=== PATIENT | female | born 1985 | race African-American/Black ===

== ENCOUNTER 2019-08-12 06:55 | Inpatient (IN) | payer BC, OTHER ==
[~2019-08-12] VITALS: Ht 170.2 cm; Wt 108.0 kg
[2019-08-12] MEDS ORDERED: DEXT 5%/LR + PITOCIN 20UNITS/L 1,000 ML IV SCH (07:35)
[2019-08-12] MEDS ORDERED: MISOPROSTOL 100MCG TABLET VG SCH (07:45)
[2019-08-12] MEDS ORDERED: NALOXONE HCL 0.4 MG/ML 1ML VIAL IM PRN (07:45)
[2019-08-12] MEDS ORDERED: METHYLERGONOVINE MALEATE 0.2 MG/ML IM PRN (07:45)
[2019-08-12] MEDS: LACTATED RINGERS 1,000 ML IV SCH ×3 (08:30→09:39)
[2019-08-12 09:01] LABS: BASOPHILS % 0.5 % (0.0-2.0); CLARITY URINE CLEAR (CLEAR); COLOR URINE YELLOW (YELLOW); EOSINOPHILS % 0.4 % (0.0-5.0); HEMATOCRIT. 28.6 % (36.0-48.0); HEMOGLOBIN. 9.3 g/dL (12.0-16.0); KETONES URINE NEGATIVE (NEGATIVE); LEUKOCYTE ESTERASE URINE NEGATIVE (NEGATIVE); LYMPHOCYTES % 15.6 % (20.0-50.0); MEAN CORPUSCULAR HEMOGLOBIN 25.5 pg (28.0-32.0); MEAN CORPUSCULAR VOLUME 78.5 fL (81.0-99.0); MEAN PLATELET VOLUME 8.1 fl (7.4-10.4); MONOCYTES % 7.6 % (2.0-8.0); NEUTROPHILS % 75.9 % (40.0-76.0); NITRITE URINE NEGATIVE (NEGATIVE); OCCULT BLOOD URINE NEGATIVE (NEGATIVE); PH URINE 6.5 (4.5-8.0); PLATELET 330 x1000/uL (130-400); PROTEIN URINE NEGATIVE (NEGATIVE); RED BLOOD CELL COUNT 3.65 mill/uL (4.2-5.4); RED CELL DISTRIBUTION WIDTH 15.9 % (11.6-14.6); SPECIFIC GRAVITY URINE 1.014 (1.005-1.030)
[2019-08-12 09:12] LABS: PARTIAL THROMBOPLASTIN TIME 25.7 sec (23.4-31.0); PROTHROMBIN TIME 9.8 sec (9.6-11.0)
[2019-08-12 09:48] LABS: *AMPHETAMINES SCREEN URINE NEGATIVE (NEGATIVE); *BARBITURATES SCREEN URINE NEGATIVE (NEGATIVE); *BENZODIAZEPINES SCREEN URINE NEGATIVE (NEGATIVE); *COCAINE SCREEN URINE NEGATIVE (NEGATIVE); METHADONE URINE SCREEN NEGATIVE (NEGATIVE); OPIATES URINE SCREEN NEGATIVE (NEGATIVE); PHENCYCLIDINE URINE SCREEN NEGATIVE (NEGATIVE)
[2019-08-12 09:49] LABS: CANNABINOID URINE SCREEN NEGATIVE (NEGATIVE)
[2019-08-12 10:21] LABS: HEPATITIS B SURFACE ANTIGEN NEGATIVE
[2019-08-12] MEDS ORDERED: MORPHINE SULFATE/PF 1MG/ML 10ML AMP ONE (11:44)
[2019-08-12] MEDS ORDERED: OXYTOCIN 10 UNITS/ML 1ML ONE ×2 (11:47→13:30)
[2019-08-12] MEDS ORDERED: CEFAZOLIN SODIUM 1000MG/VIAL ONE (11:48)
[2019-08-12] MEDS ORDERED: SODIUM CHLORIDE 0.9% 10ML VIAL ONE (11:48)
[2019-08-12] MEDS ORDERED: EPHEDRINE SULFATE 50MG/ML VIAL ONE (11:48)
[2019-08-12] MEDS ORDERED: METOCLOPRAMIDE HCL 10MG/2ML VIAL ONE (11:55)
[2019-08-12] MEDS ORDERED: ONDANSETRON HCL 4MG/2ML INJ ONE (11:55)
[2019-08-12] MEDS ORDERED: CITRIC ACID/SODIUM CITRATE SOLN 30ML UDC PO NR (12:45)
[2019-08-12] MEDS ORDERED: GLYCOPYRROLATE 0.2 MG/ML 2ML VIAL ONE (13:12)
[2019-08-12] MEDS ORDERED: KETOROLAC 60MG/2ML VIAL IM ONE (13:41)
[2019-08-12] MEDS ORDERED: IBUPROFEN 400MG TABLET PO PRN (14:15)
[2019-08-12] MEDS ORDERED: HYDROMORPHONE HCL/PF 2MG/ML CPJ IM PRN (14:15)
[2019-08-12] MEDS ORDERED: RHO(D) IMMUNE GLOBULIN 300 MCG/SYR IM PRN (14:15)
[2019-08-12] MEDS ORDERED: BISACODYL 10MG SUPP PR PRN (14:15)
[2019-08-12] MEDS ORDERED: DIPHENHYDRAMINE 50MG/ML VIAL IV PRN (14:30)
[2019-08-12] MEDS ORDERED: KETOROLAC 30MG/ML VIAL IV PRN (14:30)
[2019-08-12] MEDS ORDERED: ONDANSETRON HCL 4MG/2ML INJ IV PRN (14:30)
[2019-08-12 16:45] VITALS: BP 99/66
[2019-08-12 17:15] VITALS: BP 115/68
[2019-08-12] MEDS: DEXT 5%/LR + PITOCIN 20UNITS/L 1,000 ML IV SCH (17:36)
[2019-08-12 19:45] VITALS: BP 103/66
[2019-08-13 00:21] VITALS: BP 102/56
[2019-08-13] MEDS: DEXT 5%/LR + PITOCIN 20UNITS/L 1,000 ML IV SCH (02:28)
[2019-08-13 05:28] VITALS: BP 103/59
[2019-08-13 05:59] LABS: BASOPHILS % 0.3 % (0.0-2.0); EOSINOPHILS % 0.5 % (0.0-5.0); HEMATOCRIT. 24.1 % (36.0-48.0); HEMOGLOBIN. 7.8 g/dL (12.0-16.0); LYMPHOCYTES % 12.4 % (20.0-50.0); MEAN CORPUSCULAR HEMOGLOBIN 25.3 pg (28.0-32.0); MEAN CORPUSCULAR VOLUME 77.7 fL (81.0-99.0); MEAN PLATELET VOLUME 8.1 fl (7.4-10.4); MONOCYTES % 7.7 % (2.0-8.0); NEUTROPHILS % 79.1 % (40.0-76.0); PLATELET 297 x1000/uL (130-400); RED CELL DISTRIBUTION WIDTH 16.5 % (11.6-14.6)
[2019-08-13 07:30] VITALS: BP 106/61
[2019-08-13] MEDS: IBUPROFEN 800MG TABLET PO PRN ×2 (10:51→19:38)
[2019-08-13 16:34] VITALS: BP 106/57
[2019-08-13 20:00] VITALS: BP 121/65
[2019-08-14 00:11] VITALS: BP 105/59
[2019-08-14] MEDS: IBUPROFEN 800MG TABLET PO PRN ×2 (05:49→14:42)
[2019-08-14 05:50] VITALS: BP 111/50
[2019-08-14 07:30] VITALS: BP 105/58
[2019-08-14 15:17] VITALS: BP 100/57
[2019-08-14 20:00] VITALS: BP 122/66
[2019-08-15] VITALS: BP 110/65
[2019-08-15 07:37] VITALS: BP 115/65
[2019-08-15] MEDS: IBUPROFEN 800MG TABLET PO PRN (08:31)
== END 2019-08-15 11:30 | disposition home or self-care (01) | DRG 788 ==
LOC: 8 EST LDRP 06:55 → 8EST 16:46
PROVIDERS: ADMIT Obstetrics & Gynecology; ATTEND Obstetrics & Gynecology
PROC: 10D00Z1 Extraction of Products of Conception, Low, Open Approach (ICD-10-PCS; principal; 2019-08-12)
DX: O34.211 Maternal care for low transverse scar from previous cesarean delivery (principal); D64.9 Anemia, unspecified; O99.03 Anemia complicating the puerperium; Z37.0 Single live birth; Z3A.39 39 weeks gestation of pregnancy; Z83.2 Family history of diseases of the blood and blood-forming organs and certain disorders involving the immune mechanism
CPT/HCPCS: 36415; 80305; 81003; 86592; 86703; 86762; 86850; 86900; 86920; 87340; 88307; J0690; J1885; J2274; J2405; J2590; J2765; J3490; J7120; A4315